=== PATIENT | female | born 1970 | race Two or more races ===

== ENCOUNTER 2024-03-21 02:19 | Inpatient (IN) | payer SELFPAY ==
[2024-03-19 15:44] VITALS: PULSE 78; RESP 18; O2SAT 98
[~2024-03-21] VITALS: Ht 165.1 cm; Wt 70.6 kg
[2024-03-21 02:50] VITALS: RESP 16; O2SAT 96
[2024-03-21 03:04] LABS: Basophils # (auto) 0 10 ^3/uL (0-0.2); Basophils % (auto) 0.3 % (0.0-2.0); Eosinophils # (auto) 0.2 10 ^3/uL (0-0.8); Eosinophils % (auto) 1.7 % (0.0-7.0); Hematocrit 41.1 % (36.0-46.0); Hemoglobin 14.2 g/dL (12.2-16.2); Lymphocytes # (auto) 3.7 10 ^3/uL (0.4-5.4); Lymphocytes % (auto) 28.1 % (10.0-50.0); Mean Corpuscular Hemoglobin 31.4 pg (28.0-32.0); Mean Corpuscular Hgb Conc. 34.5 g/dL (32.0-36.0); Mean Corpuscular Volume 90.8 fL (80.0-100.0); Monocytes # (auto) 0.7 10 ^3/uL (0-1.3); Monocytes % (auto) 5.4 % (0.0-12.0); Neutrophils # (auto) 8.4 10 ^3/uL (1.6-8.6); Neutrophils % (auto) 64.5 % (37.0-80.0); Nucleated Red Blood Cells % 0.1 %; Platelet Count (auto) 227 10^3/uL (140-450); Red Blood Cells 4.52 10^6/uL (4.0-5.20); Red Cell Distribution Width 13.6 % (11.8-14.3)
[2024-03-21] MEDS: SODIUM CHLORIDE 0.9% 1,000 ML IVB ONE (03:04)
[2024-03-21 03:13] LABS: Chloride 108 mmol/L (98-107); Potassium 3.9 mmol/L (3.5-5.1); Sodium 140 mmol/L (136-145)
[2024-03-21 03:14] LABS: Anion Gap 5 (5-15); Calcium 10.7 mg/dL (8.7-10.4); Carbon Dioxide 27 mmol/L (20-31)
[2024-03-21 03:19] LABS: BUN/Creatinine Ratio 16.9 (10.0-20.0); Blood Urea Nitrogen 13 mg/dL (9-23); Glucose 110 mg/dL (74-106)
[2024-03-21] MEDS: ONDANSETRON HCL 4 MG/2 ML VIAL IV ONE (03:25)
[2024-03-21] MEDS: MORPHINE SULFATE 4 MG/ML SYR/VIAL IV ONE (03:26)
[2024-03-21 03:27] LABS: Urine Bacteria None Seen /hpf (None Seen)
[2024-03-21 03:34] LABS: Urine Blood TRACE /uL (Negative); Urine Clarity Clear (Clear); Urine Color Colorless (Yellow); Urine Protein, UAD Negative (Negative); Urine Specific Gravity 1.011 (1.001-1.035); Urine Urobilinogen Normal (Negative); Urine WBC <1 /hpf (0 - 5)
[2024-03-21] MEDS: PANTOPRAZOLE 40 MG/10 ML VIAL INJ IV ONE (03:37)
[2024-03-21 05:24] VITALS: PULSE 62; RESP 18; O2SAT 97
[2024-03-21 08:20] VITALS: PULSE 59; RESP 15; O2SAT 97
[2024-03-21] MEDS ORDERED: MORPHINE SULFATE INJ 2 MG/ml SYRG IV PRN (10:15)
[2024-03-21] MEDS ORDERED: ONDANSETRON HCL 4 MG/2 ML VIAL IV PRN ×2 (10:15→19:45)
[2024-03-21] MEDS: cefTRIAXone 1GM/50ML D5W 50 ML IV ONE (10:32)
[2024-03-21] MEDS: SODIUM CHLORIDE 0.9% 1,000 ML IV SCH (10:32)
[2024-03-21] MEDS: metroNIDAZOLE 500MG/100ML 100 ML IV ONE (11:15)
[2024-03-21] MEDS: NICOTINE 7MG/24HR TOPICAL PATCH TD ONE (11:51)
[2024-03-21] MEDS: metroNIDAZOLE 500MG/100ML 100 ML IV SCH (15:17)
[2024-03-21] MEDS: ACETAMINOPHEN 325 MG TAB PO PRN (15:37)
[2024-03-21 17:00] VITALS: BP 97/54; PULSE 65; RESP 18; TEMP 97.3; O2SAT 96
[2024-03-21] MEDS: CELECOXIB 100 MG CAP PO ONE (18:30)
[2024-03-21] MEDS: GABAPENTIN 400 MG CAP PO ONE (18:30)
[2024-03-21] MEDS ORDERED: LIDOCAINE 2% TOPICAL JELLY 5 ML URJT TOP ONE (18:37)
[2024-03-21] MEDS ORDERED: ROCURONIUM 10MG/ML 10ML VIAL IV ONE (18:39)
[2024-03-21] MEDS ORDERED: PROPOFOL 10 MG/ML 20 ML IV ONE (18:39)
[2024-03-21] MEDS ORDERED: GLYCOPYRROLATE 0.2 MG/ML 1ML VIAL ONE (18:39)
[2024-03-21] MEDS ORDERED: SUGAMMADEX 200mg/2ml Vial (100MG/ML) IV ONE (18:40)
[2024-03-21] MEDS ORDERED: KETOROLAC TROMETH 30 MG/ML 1ML VIAL ONE (18:40)
[2024-03-21] MEDS ORDERED: ONDANSETRON HCL 4 MG/2 ML VIAL ONE (18:40)
[2024-03-21] MEDS ORDERED: DexAMETHasone SOD PHOS 10MG/1ML VIAL INJ ONE (18:40)
[2024-03-21] MEDS ORDERED: fentaNYL CITRATE 100 MCG/2 ML VL ONE (18:41)
[2024-03-21] MEDS ORDERED: KETAMINE 50mg/ML 1ml syringe ONE (18:41)
[2024-03-21 19:31] VITALS: RESP 17; O2SAT 96
[2024-03-21] MEDS: fentaNYL CITRATE 100 MCG/2 ML VL IV PRN (19:44)
[2024-03-21] MEDS ORDERED: ePHEDrine SULFATE 50 MG/ML AMP IV PRN (19:45)
[2024-03-21] MEDS ORDERED: NALOXONE HCL 0.4 MG/ML VIAL IV PRN (19:45)
[2024-03-21] MEDS ORDERED: FLUMAZENIL 0.1 MG/ML INJ 10ML MDV IV PRN (19:45)
[2024-03-21] MEDS ORDERED: HYDROmorphone HCL 2 MG/ML VL/or syr IV PRN (19:45)
[2024-03-21] MEDS ORDERED: hydrALAZINE HCL 20 MG/ML VL IV PRN (19:45)
[2024-03-21] MEDS: oxyCODONE HCL 5MG TAB PO PRN (19:57)
[2024-03-22 05:00] VITALS: BP 101/58; PULSE 74; RESP 18; TEMP 96.9; O2SAT 93
[2024-03-22] MEDS: HYDROcodone-ACET 5/325MG TAB PO PRN (05:45)
[2024-03-22 08:19] VITALS: RESP 16
[2024-03-22 08:22] LABS: Basophils # (auto) 0 10 ^3/uL (0-0.2); Basophils % (auto) 0.1 % (0.0-2.0); Eosinophils # (auto) 0 10 ^3/uL (0-0.8); Hematocrit 38.7 % (36.0-46.0); Hemoglobin 13.4 g/dL (12.2-16.2); Lymphocytes # (auto) 1.1 10 ^3/uL (0.4-5.4); Lymphocytes % (auto) 11.2 % (10.0-50.0); Mean Corpuscular Hemoglobin 31.3 pg (28.0-32.0); Mean Corpuscular Hgb Conc. 34.5 g/dL (32.0-36.0); Mean Corpuscular Volume 90.9 fL (80.0-100.0); Monocytes # (auto) 0.2 10 ^3/uL (0-1.3); Monocytes % (auto) 1.9 % (0.0-12.0); Neutrophils # (auto) 8.3 10 ^3/uL (1.6-8.6); Neutrophils % (auto) 86.8 % (37.0-80.0); Platelet Count (auto) 197 10^3/uL (140-450); Red Blood Cells 4.26 10^6/uL (4.0-5.20); Red Cell Distribution Width 13.3 % (11.8-14.3); White Blood Cell 9.6 10^3/uL (4.4-10.8)
[2024-03-22 08:31] LABS: Alanine Aminotransferase 21 U/L (7-40); Alkaline Phosphatase 92 U/L (46-116); Anion Gap 6 (5-15); BUN/Creatinine Ratio 18.6 (10.0-20.0); Blood Urea Nitrogen 13 mg/dL (9-23); Calcium 9.5 mg/dL (8.7-10.4); Carbon Dioxide 27 mmol/L (20-31); Chloride 110 mmol/L (98-107); Glucose 132 mg/dL (74-106); Potassium 4.1 mmol/L (3.5-5.1); Sodium 143 mmol/L (136-145)
[2024-03-22 08:32] LABS: Albumin 3.9 g/dL (3.2-4.8); Aspartate Aminotransferase 9 U/L (13-40); Bilirubin, Total 0.4 mg/dL (0.2-1.0); Total Protein 6.1 g/dL (5.7-8.2)
[2024-03-22 09:00] VITALS: BP 116/52; PULSE 63; RESP 22; TEMP 97.9; O2SAT 93
[2024-03-22] MEDS: cefTRIAXone 1GM/50ML D5W 50 ML IV SCH (09:25)
[2024-03-22] MEDS: PANTOPRAZOLE 40 MG/10 ML VIAL INJ IV SCH (09:25)
[2024-03-22] MEDS: NICOTINE 7MG/24HR TOPICAL PATCH TD SCH (09:26)
[2024-03-22 13:00] VITALS: BP 120/59; PULSE 63; RESP 22; TEMP 97.9; O2SAT 98
[2024-03-22 17:00] VITALS: BP 103/51; PULSE 83; RESP 20; TEMP 97.9; O2SAT 87
[2024-03-22] MEDS: LIDOCAINE 1% HCL (LOCAL ANESTH.) INJ 20ML MDV ONE (17:10)
[2024-03-22] MEDS: fentaNYL CITRATE 100 MCG/2 ML VL ONE (17:10)
[2024-03-22] MEDS: LIDOCAINE 2%HCL (LOCAL ANESTH.) INJ 10ml MDV ONE (17:11)
[2024-03-22 20:56] VITALS: BP 113/54; PULSE 101; RESP 17; TEMP 98.8; O2SAT 94
[2024-03-23 00:52] VITALS: BP 103/51; PULSE 102; RESP 17; TEMP 98.5; O2SAT 95
[2024-03-23 05:00] VITALS: BP 125/61; PULSE 90; RESP 18; TEMP 98.4; O2SAT 96
[2024-03-23 07:12] LABS: Basophils # (auto) 0 10 ^3/uL (0-0.2); Basophils % (auto) 0.1 % (0.0-2.0); Eosinophils # (auto) 0 10 ^3/uL (0-0.8); Eosinophils % (auto) 0.2 % (0.0-7.0); Hematocrit 33.2 % (36.0-46.0); Hemoglobin 11.6 g/dL (12.2-16.2); Lymphocytes # (auto) 2.9 10 ^3/uL (0.4-5.4); Lymphocytes % (auto) 22.4 % (10.0-50.0); Mean Corpuscular Hemoglobin 31.5 pg (28.0-32.0); Mean Corpuscular Volume 90.1 fL (80.0-100.0); Monocytes # (auto) 0.5 10 ^3/uL (0-1.3); Monocytes % (auto) 3.8 % (0.0-12.0); Neutrophils # (auto) 9.4 10 ^3/uL (1.6-8.6); Neutrophils % (auto) 73.5 % (37.0-80.0); Platelet Count (auto) 160 10^3/uL (140-450); Red Blood Cells 3.68 10^6/uL (4.0-5.20); White Blood Cell 12.8 10^3/uL (4.4-10.8)
[2024-03-23 08:10] VITALS: RESP 16
[2024-03-23 08:44] VITALS: BP 114/63; PULSE 82; RESP 17; TEMP 97.5; O2SAT 94
[2024-03-23] MEDS ORDERED: AUG875T PO (09:42)
[2024-03-23] MEDS ORDERED: NICO14DI9 TD (09:42)
[2024-03-23] MEDS ORDERED: HYDR-4798 PO (09:42)
[2024-03-23 12:30] VITALS: BP 124/63; PULSE 89; RESP 17; TEMP 98.1; O2SAT 91
== END 2024-03-23 12:38 | disposition home or self-care (01) | DRG 399 ==
LOC: ER 02:19 → OVERFLOW 10:09 → CENTRAL 14:36
PROVIDERS: ADMIT Registered Nurse; ATTEND Student in an Organized Health Care Education/Training Program
PROC: 0DTJ4ZZ Resection of Appendix, Percutaneous Endoscopic Approach (ICD-10-PCS; principal; 2024-03-21 18:38)
DX: K35.80 Unspecified acute appendicitis (principal); F17.210 Nicotine dependence, cigarettes, uncomplicated; K29.70 Gastritis, unspecified, without bleeding; R31.9 Hematuria, unspecified
CPT/HCPCS: 36415; 74176; 76705; 80048; 80053; 81001; 85025; 87040; 87086; 96361; 96365; 96367; 96375; G0378; J1100; J1885; J2003; J2405; J2470; J2704; J3490